=== PATIENT | female | born 1945 | race Caucasian/White ===

== ENCOUNTER → 2017-09-27 | Outpatient (REF) | payer MEDICARE, OTHER ==
[2017-09-27 21:57] LABS: FERRITIN 248 NG/ML (8-252); IRON (FE) 93 UG/DL (50-170); PERCENT SATURATION 40.4 % (13.2-45.0); TOTAL IRON BINDING CAPACITY 230 UG/DL (250-450)
== END ==
LOC: M LAB REF 18:06
DX: E83.110 Hereditary hemochromatosis (principal)
CPT/HCPCS: 83550

== ENCOUNTER 2017-11-25 06:05 | Day surgery (SDC) | payer MEDICARE, OTHER ==
[~2017-11-25 06:05] MED LIST: SLF 3 ML SYR IV
[2017-11-25] MEDS: PROPARACAINE 0.5% OPHTH SOL 15ML OS (06:20)
[2017-11-25] MEDS: PHENYLEPHRINE 2.5% OPHTH SOL 2ML OS (06:25)
[2017-11-25] MEDS: TROPICAMIDE 1% OPHTH SOLN 2ML OS (06:35)
[2017-11-25] MEDS ORDERED: OFLOXACIN 0.3 % (OCUFLOX) OPTH SOL 5ML OS (07:00)
[2017-11-25] MEDS ORDERED: fentaNYL 100 MCG/2 ML INJECTION (J3010) As Ordered (07:12)
[2017-11-25] MEDS ORDERED: MIDAZOLAM INJ 2 MG/2 ML VIAL (J2250) As Ordered (07:13)
[2017-11-25] MEDS: BALANCED SALT IRRIGATION SOLUTION 500ML BAG (FOR OR EYE MACHINE) As Ordered (07:37)
[2017-11-25] MEDS: POVIDONE-IODINE 5% OPHTH PREP SOL 30ML As Ordered (07:37)
[2017-11-25] MEDS: ACETYLCHOLINE OPHTH SOLN 1% 2ML (MIOCHOL-E) As Ordered (07:37)
[2017-11-25] MEDS: DUOVISC (0.50ML VISCOAT/0.55ML PROVISC) OPHTH KIT As Ordered (07:38)
[2017-11-25] MEDS: CEFUROXIME 1MG/0.1ML INTRACAMERAL INJ As Ordered (07:38)
[2017-11-25] MEDS: LIDOCAINE 0.75%/EPINEPHRINE 0.025% IN BSS 1ML SYR INTRACAMERAL (OR ONLY) As Ordered (07:38)
== END 2017-11-25 08:36 | disposition home or self-care (01) ==
LOC: M SDC 06:05
DX: H25.12 Age-related nuclear cataract, left eye (principal); I10 Essential (primary) hypertension; E78.00 Pure hypercholesterolemia, unspecified; K21.9 Gastro-esophageal reflux disease without esophagitis; E83.119 Hemochromatosis, unspecified; M12.9 Arthropathy, unspecified; M81.0 Age-related osteoporosis without current pathological fracture; I25.10 Atherosclerotic heart disease of native coronary artery without angina pectoris; R94.31 Abnormal electrocardiogram [ECG] [EKG]; R60.0 Localized edema; I35.1 Nonrheumatic aortic (valve) insufficiency; Z88.1 Allergy status to other antibiotic agents; Z88.8 Allergy status to other drugs, medicaments and biological substances; Z91.09 Other allergy status, other than to drugs and biological substances; Z79.899 Other long term (current) drug therapy; Z79.82 Long term (current) use of aspirin; Z86.73 Personal history of transient ischemic attack (TIA), and cerebral infarction without residual deficits; Z98.51 Tubal ligation status; Z78.0 Asymptomatic menopausal state; Z96.642 Presence of left artificial hip joint; Z87.81 Personal history of (healed) traumatic fracture
CPT/HCPCS: 66984

== ENCOUNTER 2017-12-02 05:44 | Day surgery (SDC) | payer MEDICARE, OTHER ==
[2017-12-02] MEDS: PROPARACAINE 0.5% OPHTH SOL 15ML OD (06:40)
[2017-12-02] MEDS: OFLOXACIN 0.3 % (OCUFLOX) OPTH SOL 5ML OD (06:42)
[2017-12-02] MEDS: TROPICAMIDE 1% OPHTH SOLN 2ML OD (06:43)
[2017-12-02] MEDS: PHENYLEPHRINE 2.5% OPHTH SOL 2ML OD (06:44)
[2017-12-02] MEDS ORDERED: MIDAZOLAM INJ 2 MG/2 ML VIAL (J2250) As Ordered (07:11)
[2017-12-02] MEDS ORDERED: fentaNYL 100 MCG/2 ML INJECTION (J3010) As Ordered (07:11)
[2017-12-02] MEDS: POVIDONE-IODINE 5% OPHTH PREP SOL 30ML As Ordered (07:40)
[2017-12-02] MEDS: BALANCED SALT IRRIGATION SOLUTION 500ML BAG (FOR OR EYE MACHINE) As Ordered (07:44)
[2017-12-02] MEDS: CEFUROXIME 1MG/0.1ML INTRACAMERAL INJ As Ordered (07:45)
[2017-12-02] MEDS: DUOVISC (0.50ML VISCOAT/0.55ML PROVISC) OPHTH KIT As Ordered (07:45)
[2017-12-02] MEDS: ACETYLCHOLINE OPHTH SOLN 1% 2ML (MIOCHOL-E) As Ordered (07:45)
[2017-12-02] MEDS: LIDOCAINE 0.75%/EPINEPHRINE 0.025% IN BSS 1ML SYR INTRACAMERAL (OR ONLY) As Ordered (07:45)
[2017-12-02] MEDS ORDERED: ONDANSETRON 4MG/2ML VIAL (J2405) As Ordered (07:53)
[2017-12-02] MEDS ORDERED: ONDANSETRON 4MG/2ML VIAL (J2405) IV (08:15)
== END 2017-12-02 08:42 | disposition home or self-care (01) ==
LOC: M SDC 05:44
DX: H25.11 Age-related nuclear cataract, right eye (principal); K21.9 Gastro-esophageal reflux disease without esophagitis; M81.0 Age-related osteoporosis without current pathological fracture; E83.119 Hemochromatosis, unspecified; Z79.82 Long term (current) use of aspirin; Z79.899 Other long term (current) drug therapy; Z88.8 Allergy status to other drugs, medicaments and biological substances
CPT/HCPCS: 66984

== ENCOUNTER → 2018-01-26 | Outpatient (REF) | payer MEDICARE, OTHER ==
[2018-01-26 17:14] LABS: FERRITIN 202 NG/ML (8-252); IRON (FE) 155 UG/DL (50-170); PERCENT SATURATION 67.4 % (13.2-45.0); TOTAL IRON BINDING CAPACITY 230 UG/DL (250-450)
== END ==
LOC: M LAB REF 16:45
DX: E83.110 Hereditary hemochromatosis (principal)
CPT/HCPCS: 83550

== ENCOUNTER → 2018-03-14 | Outpatient (REF) | payer MEDICARE, OTHER ==
[2018-03-14 19:00] LABS: FERRITIN 145 NG/ML (8-252); IRON (FE) 114 UG/DL (50-170); TOTAL IRON BINDING CAPACITY 228 UG/DL (250-450)
== END ==
LOC: M LAB REF 17:14
DX: E83.110 Hereditary hemochromatosis (principal)
CPT/HCPCS: 83550

== ENCOUNTER → 2018-07-18 | Outpatient (CLI) | payer MEDICARE, OTHER | LOC: M RAD 07:19 | DX: E83.119 Hemochromatosis, unspecified (principal); D18.03 Hemangioma of intra-abdominal structures | CPT/HCPCS: 76700 ==

== ENCOUNTER → 2019-04-26 | Outpatient (REF) | payer MEDICARE, OTHER ==
[~2019-04-26] MED LIST changes: +AMLO5TAB6 PO; +ASPI81CH21 PO; +ASPI81TA26 PO; +CALC-218 PO; +CARV6.25 PO; +COUM2.5T17 PO; +DEPA250T2 PO; +EPLE25TA; +FERR325T3 PO; +ISOS30TA4; +LIPI20TA PO; +LISIPOW PO; +MAGO400T PO; +METO1TAB32 PO; +METOPROLOL PO; +OMEPPOW18 PO; +OYST500T50 PO; +PERCOCET PO; +PRAVASTATIN PO; +REST0.05 OU; -SLF 3 ML SYR IV; +TYLE325T5 PO
== END ==
LOC: M SFHCPLAZ 18:11
PROVIDERS: ATTEND Dermatology
DX: R21 Rash and other nonspecific skin eruption (principal); L72.0 Epidermal cyst
CPT/HCPCS: 11102; 17000; 87529; 87798; 88305; G0463

== ENCOUNTER → 2019-06-16 | Outpatient (REF) | payer MEDICARE, OTHER ==
[2019-06-16 12:14] LABS: APPEARANCE, URINE CLEAR (CLEAR); BACTERIA, URINE AUTO NEGATIVE (NEGATIVE); BILIRUBIN, URINE AUTO NEGATIVE (NEGATIVE); BLOOD, URINE BLOOD 2+ (NEGATIVE); COLOR, URINE STRAW (YELLOW); GLUCOSE, URINE (UA) AUTO NEGATIVE (NEGATIVE); KETONE, URINE AUTO NEGATIVE (NEGATIVE); LEUKOCYTE ESTERASE, URINE AUTO 2+ (NEGATIVE); NITRITE, URINE AUTO NEGATIVE (NEGATIVE); PROTEIN, URINE AUTO NEGATIVE (NEGATIVE); RBC, URINE AUTO 4 /HPF (0-3); SPECIFIC GRAVITY URINE AUTO 1.005 (1.002-1.035); SQUAMOUS EPITHELIAL CELL UR AU 1 /HPF (0-6); UROBILINOGEN, URINE AUTO 0.2 mg/dL (0.0-2.0); WBC, URINE AUTO 16 /HPF (0-3)
== END ==
LOC: M SFHCLERA 09:15
PROVIDERS: ATTEND Family Medicine
DX: R31.1 Benign essential microscopic hematuria (principal)
CPT/HCPCS: 81001; 87086; G0463

== ENCOUNTER → 2019-06-30 | Outpatient (REF) | payer MEDICARE, OTHER ==
[2019-06-30 18:00] LABS: APPEARANCE, URINE CLEAR (CLEAR); BACTERIA, URINE AUTO NEGATIVE (NEGATIVE); BILIRUBIN, URINE AUTO NEGATIVE (NEGATIVE); BLOOD, URINE BLOOD 2+ (NEGATIVE); COLOR, URINE YELLOW (YELLOW); GLUCOSE, URINE (UA) AUTO NEGATIVE (NEGATIVE); KETONE, URINE AUTO TRACE mg/dL (NEGATIVE); LEUKOCYTE ESTERASE, URINE AUTO TRACE (NEGATIVE); MUCUS, URINE SMALL (NEGATIVE); NITRITE, URINE AUTO NEGATIVE (NEGATIVE); PROTEIN, URINE AUTO NEGATIVE (NEGATIVE); RBC, URINE AUTO 6 /HPF (0-3); SPECIFIC GRAVITY URINE AUTO 1.008 (1.002-1.035); SQUAMOUS EPITHELIAL CELL UR AU 0 /HPF (0-6); UROBILINOGEN, URINE AUTO 0.2 mg/dL (0.0-2.0); WBC, URINE AUTO 6 /HPF (0-3)
== END ==
LOC: M SMT 17:13
PROVIDERS: ATTEND Nurse Practitioner Family
DX: R31.29 Other microscopic hematuria (principal)
CPT/HCPCS: 81001; 87086; 88108; G0463

== ENCOUNTER → 2019-07-06 | Outpatient (REF) | payer MEDICARE, OTHER ==
[2019-07-06 20:19] LABS: ALBUMIN 3.3 GM/DL (3.2-5.2); CALCIUM LEVEL 8.8 MG/DL (8.8-10.2); CREATININE FOR GFR 1.44 MG/DL (0.55-1.30); GLOMERULAR FILTRATION RATE 38.1 (>39); PHOSPHORUS LEVEL 3.5 MG/DL (2.5-4.9); POTASSIUM SERUM 4.5 MEQ/L (3.5-5.1)
== END ==
LOC: M SFHCLERA 14:46
PROVIDERS: ATTEND Family Medicine
DX: I10 Essential (primary) hypertension (principal)

== ENCOUNTER → 2019-07-09 | Outpatient (REF) | payer MEDICARE, OTHER ==
[2019-07-09 19:29] LABS: ALBUMIN 3.3 GM/DL (3.2-5.2); BLOOD UREA NITROGEN 11 MG/DL (7-18); CALCIUM LEVEL 8.7 MG/DL (8.8-10.2); CARBON DIOXIDE LEVEL 28 MEQ/L (21-32); CHLORIDE LEVEL 101 MEQ/L (98-107); GLOMERULAR FILTRATION RATE > 60.0 (>39); GLUCOSE, FASTING 127 MG/DL (70-100); PHOSPHORUS LEVEL 3.4 MG/DL (2.5-4.9); POTASSIUM SERUM 4.7 MEQ/L (3.5-5.1); SODIUM LEVEL 136 MEQ/L (136-145)
== END ==
LOC: M SFHCLERA 15:19
PROVIDERS: ATTEND Family Medicine
DX: I10 Essential (primary) hypertension (principal)

== ENCOUNTER → 2019-07-24 | Outpatient (CLI) | payer MEDICARE, OTHER ==
[~2019-07-24] MED LIST changes: +ISOVUE-370 76% 100ML VIAL (Q9967) As Ordered ONE
--- NOTE | 2019-07-24 14:43 | REP ---
CT of the abdomen pelvis without and with IV contrast, multiphase scanning for microscopic hematuria, CT urogram protocol: Comparison is 06/22/2014. There are no renal calculi. There are no ureteral calculi. There is no hydronephrosis. There is a calcification posterolateral to the distal left ureter in the pelvis, likely a phlebolith, unchanged from the prior study. There are other phleboliths, more inferiorly in the pelvis. Multiphase imaging after IV contrast demonstrates no renal masses or cysts. The patient has a left hip arthroplasty resulting in beam hardening artifact obscuring visualization of the pelvis, including the bladder. Images are performed with artifact reducing software has slightly improved. Image quality. No large bladder masses are identified, however the bladder is suboptimally demonstrated. There is a 8 mm nodule in the deep posterior sulcus of the left lower lobe, unchanged from the prior study. There is chronic curvilinear scarring in the lung lower lobes bilaterally, unchanged. The hepatic parenchyma is homogeneous on all phases of the study. There is a 8-mm gallbladder calculus, similar to the prior study. The gallbladder is otherwise unremarkable. There is no biliary duct dilatation. The pancreas and spleen are unremarkable. There is a 3.7 cm diverticulum of the transverse portion of the duodenum. The adrenals are unremarkable. The abdominal aorta is unremarkable. There is no periaortic adenopathy or mass. The bowel and mesentery are unremarkable except for wall thickening of the descending colon. This is nonspecific but can represent colitis in the appropriate clinical setting. Pelvis: The uterus and adnexa are grossly unremarkable. There is obscuration from beam hardening. There are numerous diverticula E in the sigmoid colon. There is no CT evidence of diverticulitis. There is no pelvic ascites. Left hip arthroplasty as previously. Impression: There are no renal or ureteral calculi. No hydronephrosis. There are no solid or cystic renal masses. There is a single gallbladder calculus, not significantly changed. There is no biliary duct dilatation. There are findings compatible with colitis of the descending colon in the appropriate clinical setting. The bladder is suboptimally demonstrated as discussed. There is a diverticulum of the transverse portion of the duodenum. Sigmoid colon diverticulosis without diverticulitis. Left hip arthroplasty. Stable nodule in the deep posterior sulcus of the left lung lower lobe. Electronically Signed by Jitendra Frederick MD 07/24/2019 02:35 P
== END ==
LOC: M RAD 12:43
PROVIDERS: ATTEND Family Medicine
DX: R31.29 Other microscopic hematuria (principal)
CPT/HCPCS: 74178; Q9967

== ENCOUNTER → 2020-05-02 | Outpatient (CLI) | payer MEDICARE, OTHER ==
[~2020-05-02] MED LIST changes: +AMLO1TAB24 PO; -AMLO5TAB6 PO; -ISOVUE-370 76% 100ML VIAL (Q9967) As Ordered ONE
--- NOTE | 2020-06-12 09:06 | REP ---
RIGHT UPPER QUADRANT ULTRASOUND: HISTORY: Hemochromatosis. FINDINGS: Real time sonographic evaluation of the upper right upper quadrant is performed. At least one gallstone is seen in the gallbladder, 1.4 cm in diameter. There is no gallbladder wall thickening or pericholecystic fluid. There is no intrahepatic biliary dilatation. The common bile duct is upper limits of normal in size at 7 mm. The liver and pancreas are grossly unremarkable with no gross mass. The study is limited due to body habitus. The right kidney demonstrates no hydronephrosis with normal size, 10.5 cm in length. There is no ascites. IMPRESSION: At least one stone in the gallbladder measuring 1.4 cm in diameter. No gallbladder wall thickening, pericholecystic fluid or biliary dilatation. The common bile duct is upper limits of normal at 7 mm. No gross liver abnormality sonographically. MTDD
== END ==
LOC: M RAD 09:00
PROVIDERS: ATTEND Internal Medicine Hematology & Oncology
DX: E83.119 Hemochromatosis, unspecified (principal); K80.20 Calculus of gallbladder without cholecystitis without obstruction

== ENCOUNTER → 2020-10-14 | Outpatient (CLI) | payer MEDICARE, OTHER ==
[~2020-10-14] MED LIST changes: +ISOS1TAB35; -ISOS30TA4
== END ==
LOC: M LAB 11:58
PROVIDERS: ATTEND Physician Assistant Medical
DX: R51.9 Headache, unspecified (principal)

== ENCOUNTER → 2020-12-06 | Outpatient (CLI) | payer MEDICARE, OTHER ==
[2020-12-06 13:50] LABS: BASO % 0.4 % (0.0-1.0); EOS # 0.1 10^3/uL (0.0-0.5); EOS % 0.7 % (0.0-3.0); LYMPH # 1.7 10^3/uL (1.5-5.0); LYMPH % 24.1 % (24.0-44.0); MEAN CORPUSCULAR HEMOGLOBIN 32.5 pg (27.0-33.0); MEAN CORPUSCULAR HGB CONC 34.1 g/dl (32.0-36.5); MEAN CORPUSCULAR VOLUME 95.2 fl (80.0-96.0); MONO # 0.8 10^3/uL (0.0-0.8); MONO % 10.6 % (2.0-8.0); NEUTROPHILS # 4.5 10^3/uL (1.5-8.5); NEUTROPHILS % 63.8 % (36.0-66.0); PLATELET COUNT, AUTOMATED 135 10^3/uL (150-450); RED BLOOD COUNT 4.62 10^6/uL (4.00-5.40); WHITE BLOOD COUNT 7.1 10^3/uL (4.0-10.0)
[2020-12-06 14:15] LABS: HEMOGLOBIN A1c 5.5 %
[2020-12-06 14:26] LABS: ALBUMIN 3.4 GM/DL (3.2-5.2); ALT/SGPT 13 U/L (12-78); BILIRUBIN,TOTAL 0.8 MG/DL (0.2-1.0); BLOOD UREA NITROGEN 12 MG/DL (7-18); CALCIUM LEVEL 8.7 MG/DL (8.8-10.2); CARBON DIOXIDE LEVEL 27 MEQ/L (21-32); CHLORIDE LEVEL 102 MEQ/L (98-107); FERRITIN 44 NG/ML (8-252); FREE T4 1.04 NG/DL (0.76-1.46); GLOMERULAR FILTRATION RATE > 60.0 (>39); GLUCOSE, FASTING 76 MG/DL (70-100); IRON (FE) 123 UG/DL (50-170); PERCENT SATURATION 50.8 % (13.2-45.0); SODIUM LEVEL 133 MEQ/L (136-145); TOTAL IRON BINDING CAPACITY 242 UG/DL (250-450); TOTAL PROTEIN 6.9 GM/DL (6.4-8.2)
== END ==
LOC: M LAB 13:07
PROVIDERS: ATTEND Family Medicine
DX: E83.119 Hemochromatosis, unspecified (principal); Z79.899 Other long term (current) drug therapy

== ENCOUNTER → 2021-02-28 | Outpatient (CLI) | payer MEDICARE, OTHER ==
--- NOTE | 2021-02-28 18:25 | REP ---
INDICATION: PAIN IN LEFT ARM COMPARISON: None. TECHNIQUE: AP and lateral left forearm. FINDINGS: There is no evidence of acute fracture, dislocation, or intrinsic bone disease. IMPRESSION: No fracture or dislocation. <Electronically signed by Jitendra Mcfarland > 02/28/21 [id number]
== END ==
LOC: M RAD 14:32
PROVIDERS: ATTEND Internal Medicine Cardiovascular Disease
DX: M79.602 Pain in left arm (principal)

== ENCOUNTER → 2021-03-12 | Outpatient (CLI) | payer MEDICARE, OTHER ==
--- NOTE | 2021-03-12 11:07 | REPMRS ---
Patient History The patient states she has not had a clinical breast exam in over a year. Patient is postmenopausal. Family history of endometrial cancer at age 50 or over in maternal aunt. Patient states no breast complaints today. Patient has signed MRS History Sheet. Digital Woman Screen Mammo: March 12, 2021 - Exam #: [id number] Bilateral CC and MLO view(s) were taken. Technologist: Aurora Flores, Technologist Prior study comparison: July 17, 2019, bilateral digital mammo screening bilat, performed at [facility] [facility]. July 15, 2018, digital mammo screening bilat, performed at [facility] [employer] [facility]. July 14, 2017, bilateral digital mammo screening bilat, performed at [facility]. FINDINGS: There are scattered fibroglandular densities. The Volpara volumetric breast density category is: B. There is a moderate amount of residual fibroglandular tissue which is fairly symmetric. There is no interval development of dominant mass, architectural distortion, or grouped microcalcification typical of malignancy. There has been no change in the appearance of the mammogram from the prior studies. 3-D tomosynthesis shows no additional findings. Assessment: BI-RADS/ACR category 1 mammogram. Negative Mammogram. Recommendation Routine screening mammogram of both breasts in 1 year (for women over age 40). This patient's [facility] Lifetime Breast Cancer RIsk is estimated at 3.0 %. This mammogram was interpreted with the aid of an FDA-approved computer-aided dectection system. Electronically Signed By: Lewis Santos MD 03/12/21 [id number]
== END ==
LOC: M WHC 10:16
PROVIDERS: ATTEND Family Medicine
DX: Z12.31 Encounter for screening mammogram for malignant neoplasm of breast (principal)

== ENCOUNTER → 2021-05-14 | Outpatient (CLI) | payer MEDICARE, OTHER | LOC: M LAB 14:40 | PROVIDERS: ATTEND Physician Assistant Medical | DX: G43.909 Migraine, unspecified, not intractable, without status migrainosus (principal); Z51.81 Encounter for therapeutic drug level monitoring ==

== ENCOUNTER → 2022-06-19 | Outpatient (CLI) | payer MEDICARE, OTHER | LOC: M WHC 12:19 | PROVIDERS: ATTEND Student in an Organized Health Care Education/Training Program | DX: Z12.31 Encounter for screening mammogram for malignant neoplasm of breast (principal) ==

== ENCOUNTER → 2024-05-03 | Outpatient (REF) | payer MEDICARE, OTHER ==
[~2024-05-03] MED LIST changes: -EPLE25TA; +EPLE25TA2; +ONE50TAB3 PO
== END ==
LOC: M SFHCLERA 16:29
PROVIDERS: ATTEND Family Medicine
DX: J02.9 Acute pharyngitis, unspecified (principal)

== ENCOUNTER → 2024-08-02 | Outpatient (CLI) | payer MEDICARE, OTHER ==
[~2024-08-02] MED LIST changes: +CYCL1DRO10; +DIVA250T7; +EPLE25TA15; -EPLE25TA2
== END ==
LOC: M WHC 13:46
PROVIDERS: ATTEND Family Medicine
DX: M85.89 Other specified disorders of bone density and structure, multiple sites (principal)

== ENCOUNTER → 2025-01-17 | Outpatient (CLI) | payer MEDICARE, OTHER, MEDICAID | LOC: M RAD 10:22 | PROVIDERS: ATTEND Internal Medicine Hematology & Oncology | DX: E83.110 Hereditary hemochromatosis (principal) ==